=== PATIENT | female | born 1970 | race Caucasian/White ===

== ENCOUNTER 2017-08-20 10:35 | Emergency (ER) | payer OTHER ==
[2017-08-20 10:43] VITALS: BP 145/79
[2017-08-20] MEDS ORDERED: PSEUDOEPHEDRINE 30 MG TABLET PO STA (11:51)
[2017-08-20] MEDS ORDERED: OXYMETAZOLINE NASAL SPRAY NAS STA (11:51)
[2017-08-20] MEDS ORDERED: AMOXICILLIN 250 MG CAPSULE PO STA (11:51)
--- NOTE | 2017-08-20 11:56 | ED Physician Documentation ---
History of Present Illness - Stated complaint Stated Complaint: EAR PX - Chief complaint Chief Complaint: Heent - Additonal information Additional information: hx from pt 47 f recent sinus congestion and inc ear pain last night pop L ear and blood otherwise well denies preg Review of Systems Constitutional: denies: Fever Ears: reports: Ear pain, Drainage/discharge Nose: reports: Congestion, Sinus pressure / pain Respiratory: denies: Cough GI: denies: Vomiting : denies: Now [facility] PD PAST MEDICAL HISTORY - Past Medical History Past Medical History: Yes GI: GERD Psych: Depression, Anxiety - Past Surgical History Past Surgical History: Yes /[employer]: Tubal ligation, Other - Present Medications Home Medications: Ambulatory Orders Medication Instructions Recorded Confirmed Amoxicillin 500 mg PO Q8H #30 capsule 08/20/17 Famotidine [Pepcid] 20 mg PO ONCE 08/20/17 08/20/17 Oxymetazoline HCl [Afrin] 2 spray NS BID PRN #1 bottle 08/20/17 Pseudoephedrine [Sudafed] 30 mg PO Q6H PRN #20 tablet 08/20/17 Venlafaxine ER [Effexor ER] 37.5 mg PO DAILY 08/20/17 08/20/17 - Allergies Allergies/Adverse Reactions: Allergies Allergy/AdvReac Type Severity Reaction Status Date / Time No Known Drug Allergies Allergy Verified 08/20/17 10:43 - Social History Does the pt smoke?: Yes Smoking Status: Current every day smoker Does the pt drink ETOH?: No Does the pt have substance abuse?: No - Immunizations Immunizations are current?: Yes - POLST Patient has POLST: No PD ED PE NORMAL - Vitals Vital signs reviewed: Yes - HEENT HEENT: Pharynx benign. No: Ears normal (L TM perf, R bulging and red) - Neck Neck: Supple, no meningeal sign - Cardiac Cardiac: RRR - Respiratory Respiratory: No respiratory distress, Clear bilaterally Results - Vitals Vitals: Vital Signs - 24 hr 08/20/17 10:41 Temperature 36.5 C Heart Rate 100 Respiratory 18 Rate Blood Pressure 145/79 H O2 Saturation 98 Oxygen O2 Source Room air PD MEDICAL DECISION MAKING - Sepsis Event Vital Signs: Vital Signs - 24 hr 08/20/17 10:41 Temperature 36.5 C Heart Rate 100 Respiratory 18 Rate Blood Pressure 145/79 H O2 Saturation 98 Oxygen O2 Source Room air Departure - Departure Disposition: Home, Self Care Clinical Impression: Acute otitis media with perforated tympanic membrane Qualifiers: Laterality: left Qualified Code(s): H66.92 - Otitis media, unspecified, left ear; H72.92 - Unspecified perforation of tympanic membrane, left ear; H72.92 - Unspecified perforation of tympanic membrane, left ear Condition: Good Instructions: ED Otitis Media Acute Adult, ED Rupture Eardrum Infec Prescriptions: Amoxicillin 500 mg PO Q8H #30 capsule Oxymetazoline HCl [Afrin] 2 spray NS BID PRN #1 bottle PRN Reason: nasal sinus ear congestion Pseudoephedrine [Sudafed] 30 mg PO Q6H PRN #20 tablet PRN Reason: congestion Comments: No water in ear Tylenol and motrin for the pain Follow up with your PMD for an ear check in one week
[2017-08-20] MEDS ORDERED: IBUPROFEN 400 MG TABLET PO STA (11:57)
== END 2017-08-20 12:02 | disposition home or self-care (01) ==
LOC: ED 10:35
DX: H66.92 Otitis media, unspecified, left ear (principal); H72.92 Unspecified perforation of tympanic membrane, left ear; F17.200 Nicotine dependence, unspecified, uncomplicated
CPT/HCPCS: 99283; A9270